=== PATIENT | female | born 1955 | race Caucasian/White ===

== ENCOUNTER 2023-05-04 15:05 | Outpatient (AMB) | payer MEDICARE, SELFPAY ==
[2023-05-04 15:14] VITALS: BP 104/60; PULSE 83; O2SAT 95; BMI 45.0
--- NOTE | 2023-05-04 15:14 | A.OFFVIS_ITS ---
Intake Vital Signs 05/04/23 15:14 Height 5 ft 1 in Weight 238 lb BMI 45.0 BP 104/60 Blood Pressure Location Rt brachial Position Sitting Pulse 83 Pulse Source Pulse Oximeter Pulse Oximetry (%) 95 Oxygen Delivery Method Room Air Intake Visit Reasons: 01/14/23 LETTER [id number]-[id number] LOSS/EMG-LVM Intake Note: Pt presents as a NPV. Pt states her Hands go numb, and tingling and its constant. especially on the left side. Warp Picker Required: No Allergies Sulfa (Sulfonamide Antibiotics) Allergy (Unknown, Verified 05/04/23 15:19) Unknown sulfamethoxazole [From Bactrim] Allergy (Unknown, Verified 05/04/23 15:19) Unknown trimethoprim [From Bactrim] Allergy (Unknown, Verified 05/04/23 15:19) Unknown penicillin Allergy (Severe, Uncoded 05/04/23 15:19) Swelling Medication List - Last Reconciled 05/04/23 by YUE Costa acetaminophen (Tylenol Extra Strength) 500 mg PO Q6H PRN albuterol sulfate 90 mcg/actuation (Ventolin HFA) 2 puffs inhalation Q4H PRN amitriptyline 25 mg PO BEDTIME amlodipine 10 mg PO DAILY atorvastatin 40 mg PO DAILY benzonatate 200 mg PO TID PRN clopidogrel 75 mg PO DAILY cyanocobalamin (vitamin B-12) ER (Vitamin B-12 ER) 0 mcg PO DAILY cyclobenzaprine 10 mg PO TID PRN docusate sodium 100 mg PO BID furosemide 20 mg PO DAILY glipizide 10 mg PO BID insulin glargine (Lantus Solostar U-100 Insulin) units subcut lancets (OneTouch Delica Plus Lancet) As directed levothyroxine 88 mcg PO DAILY lisinopril 10 mg PO DAILY menthol 1 appl topical TID-QID PRN metoprolol tartrate 150 mg PO BID nitroglycerin 0 mg sublingual oxycodone 5 mg PO TID PRN oxycodone ER (OxyContin) 60 mg PO BID sucralfate 10 mL PO TID PRN HPI HPI Comments History of Present Illness Details Right-handed 68-yr-old female presents for neurological evaluation of: Left hand paresthesias. Pt reports worsening left hand painful numbness and tingling from the carpal tunnel region radiating through 2nd-5th fingers and through the thenar region. This started about a year ago w/o preceding infection/injury. More recently this has started in the right hand as well- but not as severe. This occurs mostly at night and upon awakening, and even during the day. She finds that she needs to move her left hand frequently to reduce the numbness. She has noticed some LUE weakness- for instance recently dropped something out of her hands. She has tried a leftwrist splint qhs- but it does not help much. She is on amitriptyline, oxycodone and oxycontin for chronic pain and fibromyalgia- but this does not help the hand pain. Her last HgA1C was approx 7%- prior was 8%- slowly decreased through diet changes. Pt states her b-12 folate, and thyroid studies have been WNL. 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 Denies any specific repetitive task. Patient endorses: Leg cramps. Right hand 4th finger trigger finger surgery. Left 1st finger trigger finger s/s- resolved w/ cortiosne inj a few yrs ago. And patient denies: Color changes in her hands. Swelling in her hands. Usual neck pain- although her neck can be tight. BLE numbness or paresthesias. [facility] Surgical History History of section Hx of cholecystectomy Hx of tonsillectomy Hx of tubal ligation Family History Father Myocardial infarction Mother Myocardial infarction Brother Cancer of kidney Brother Cancer of kidney Brother Lung cancer Sister Cerebrovascular accident (CVA) Social History (Updated 05/04/23 @ 15:29 by Sosa Guevara CMA) Alcohol intake: never Patient Tobacco Use Status: Former Tobacco user Review of Systems Const Details: See scanned ROS form Physical Exam Vital Signs: Last Vital Signs Pulse 83 05/04/23 15:14 BP 104/60 05/04/23 15:14 Pulse Ox 95 05/04/23 15:14 Oxygen Delivery Method Room Air 05/04/23 15:14 BMI result Body Mass Index 45.0 Const General: cooperative and no acute distress Orientation/consciousness: patient oriented x3 HEENT Head: Yes normocephalic Resp Effort & Inspection: normal respiratory effort and able to speak in complete sentences Back/Spine/Pelvis Other: Bilateral posterior cervical tightness. Cervical ROM: mildly decreased Left Spurling: elicits non-radiating base of neck tenderness/tightness Right Spurling: normal. Neuro Other: BUE- positive medial compression test, more son on left MS 5/5- although left hand grasp slightly weaker than right BUE hand CMS 2+. Left distal posterior forearm swelling, slightly tender to touch, mild redness, no warmth BUE can test- negative DTRs 2+ throughtout, however test of left brachial reflex elicits shooting pain up/down arm. General: patient oriented x3, CN's II-XI intact bilaterally and deep tendon reflexes 2+ bilaterally Gait exam (Neuro): Normal gait present Motor exam (neuro): 5/5 motor strength present throughout Psych Appearance: grossly normal Mental Status: mental status grossly normal Speech and movement: Normal speech and movement present Affect: normal affect Attitude: cooperative Thought process: Normal thought process present Thought content: Normal thought content present Assessment & Plan Assessment & Plan (1) Paresthesia of hand, bilateral: Code(s): R20.2 - Paresthesia of skin (2) Bilateral hand numbness: Code(s): R20.0 - Anesthesia of skin (3) Left wrist pain: Code(s): M25.532 - Pain in left wrist Plan Pt advised to undergo BUE EMG/NCS. Pt advised to have left wrist XR. Continue Amitriptyline 25mg qhs. Discussed trying increased dose of Amitriptyline, however pt declines at this time. Continue left wrist splint qhs, may try adding a left elbow splint qhs. Continue using supportive neck pillow at night. f/u in 3 months or sooner prn. Orders: Orders NE electromyogram (EMG) Today R20.0 - Anesthesia of skin, R20.2 - Paresthesia of skin XR wrist LT min 3V Today M25.532 - Pain in left wrist, R20.0 - Anesthesia of skin, R20.2 - Paresthesia of skin Coding Level of Care Code New Pt Level 4 (19848) Diagnoses Paresthesia of hand, bilateral R20.2 Bilateral hand numbness R20.0 Left wrist pain M25.532
== END 2023-05-04 16:29 | disposition home or self-care (01) ==
PROVIDERS: Visit Provider Nurse Practitioner Family
DX: R20.2 Paresthesia of skin (principal); R20.0 Anesthesia of skin; M25.532 Pain in left wrist
CPT/HCPCS: 99204

== ENCOUNTER → 2023-05-04 15:05 | Outpatient (BNVA) | payer MEDICARE, SELFPAY | PROVIDERS: Visit Provider Nurse Practitioner Family | DX: M25.532 Pain in left wrist (principal); R20.2 Paresthesia of skin; R20.0 Anesthesia of skin | CPT/HCPCS: 99202 ==

== ENCOUNTER 2023-05-09 15:03 | Outpatient (REF) | payer OTHER, SELFPAY ==
--- NOTE | ~2023-05-09 | XR_ITS ---
EXAMINATION: XR WRIST, LEFT CLINICAL INFORMATION: Anesthesia of skin COMPARISON: None available. TECHNIQUE: PA, lateral, and oblique views of the left wrist. FINDINGS: Bone alignment is normal. No fracture or dislocation. There is mild arthritis at the first GROUP HOME joint with joint space narrowing. Joint spaces are otherwise normal. Soft tissues are normal. XR/XR wrist LT min 3V IMPRESSION: Degenerative changes of the first GROUP HOME joint.
== END 2023-05-09 15:04 | disposition home or self-care (01) ==
LOC: HO.XRAY 15:03
PROVIDERS: PCP Internal Medicine; Visit Provider Nurse Practitioner Family
DX: M25.532 Pain in left wrist (principal); R20.0 Anesthesia of skin; R20.2 Paresthesia of skin
CPT/HCPCS: 73110

== ENCOUNTER 2023-07-06 13:50 | Outpatient (REF) | payer OTHER, SELFPAY ==
--- NOTE | 2023-07-06 13:54 | EMG_ITS ---
Chief complaint: Left worse than right hand numbness Reason for referral: Evaluate for Carpal Tunnel Syndrome Referred by: Vee Newberry NP Procedure done: Bilateral upper extremities NCS/EMG Precautions and/or limitations: None The limb temperature was monitored continuously and remained between 32-36 degrees C during the performance of the NCS. Nerve Conduction Studies Anti Sensory Summary Table ?Stim Site NR Onset (ms) Norm Onset (ms) Peak (ms) Norm Peak (ms) O-P Amp (?V) Norm O-P Amp Site1 Site2 Delta-0 (ms) Dist (cm) Yang (m/s) Norm Yang (m/s) Left Median Anti Sensory (2nd Digit) Wrist NR <3.6 >10 Wrist 2nd Digit 14.0 Right Median Anti Sensory (2nd Digit) Wrist NR <3.6 >10 Wrist 2nd Digit 14.0 Right Radial Anti Sensory (Thumb) Forearm ? 1.7 2.1 <3.1 26.4 Forearm Thumb 1.7 0.0 Left Ulnar Anti Sensory (5th Digit) Wrist ? 2.1 2.9 <3.7 29.1 >15.0 Wrist 5th Digit 2.1 14.0 67 Right Ulnar Anti Sensory (5th Digit) Wrist ? 2.8 3.3 <3.7 32.2 >15.0 Wrist 5th Digit 2.8 14.0 50 Motor Summary Table ?Stim Site NR Onset (ms) Norm Onset (ms) O-P Amp (mV) Norm O-P Amp iAmp (mV) Amp (1st) (%) Site1 Site2 Delta-0 (ms) Dist (cm) Yang (m/s) Norm Yang (m/s) Left Median Motor (Abd Poll Brev) Wrist ? 8.8 <3.9 4.8 >4.5 5.6 100.0 Elbow Wrist 1.0 19.0 190 >45 Elbow ? 9.8 4.2 4.9 87.5 Right Median Motor (Abd Poll Brev) Wrist ? 8.9 <3.9 1.6 >4.5 1.8 100.0 Elbow Wrist 3.5 21.0 60 >45 Elbow ? 12.4 1.1 1.3 68.8 Left Ulnar Motor (Abd Dig Minimi) Wrist ? 2.6 <3.0 5.3 >5 6.1 100.0 B Elbow Wrist 3.2 17.0 53 >45 B Elbow ? 5.8 6.0 7.1 113.2 A Elbow B Elbow 1.4 10.0 71 >45 A Elbow ? 7.2 6.0 7.3 113.2 Right Ulnar Motor (Abd Dig Minimi) Wrist ? 2.7 <3.0 6.3 >5 7.7 100.0 B Elbow Wrist 3.3 16.5 50 >45 B Elbow ? 6.0 6.4 7.6 101.6 A Elbow B Elbow 1.7 10.0 59 >45 A Elbow ? 7.7 6.3 7.5 100.0 EMG ?Side Muscle Nerve Root Ins Act Fibs Psw Amp Dur Poly Recrt Int Pat Comment Right 1stDorInt Ulnar C8-T1 Nml Nml Nml Nml Nml 0 Nml Complete Right FlexCarRad Median C6-7 Nml Nml Nml Nml Nml 0 Nml Complete Right Biceps Musculocut C5-6 Nml Nml Nml Nml Nml 0 Nml Complete Right Triceps Radial C6-7-8 Nml Nml Nml Nml Nml 0 Nml Complete Right Deltoid Axillary C5-6 Nml Nml Nml Nml Nml 0 Nml Complete Left 1stDorInt Ulnar C8-T1 Nml Nml Nml Nml Nml 0 Nml Complete Left FlexCarRad Median C6-7 Nml Nml Nml Nml Nml 0 Nml Complete Left Biceps Musculocut C5-6 Nml Nml Nml Nml Nml 0 Nml Complete Left Triceps Radial C6-7-8 Nml Nml Nml Nml Nml 0 Nml Complete Left Deltoid Axillary C5-6 Nml Nml Nml Nml Nml 0 Nml Complete FINDINGS: Right median motor nerve showed prolonged distal latency, small amplitude and normal conduction velocity. Left median motor nerve showed prolonged distal latency, normal amplitude but some dispersion proximally and normal conduction velocity. Bilateral median sensory nerves showed absent response. All other nerves tested were within normal. Concentric needle EMG was performed in selected muscles of the bilateral upper extremities. Study did not reveal signs of electric abnormalities as shown in the table below. IMPRESSION: 1. This is an abnormal study. 2. There is electrodiagnostic evidence for bilateral moderate-severe median neuropathy at the wrist, consistent with carpal tunnel syndrome. 3. There is no electrodiagnostic evidence for ulnar neuropathy, brachial plexopathy, or cervical radiculopathy. Thank you for your kind referral. Tamara Concepcion MD, ZEYAD Board Certified, [place] Board of [employer] Medicine and Rehabilitation (ABPMR) Board Certified, [place] Board of Electrodiagnostic Medicine (ABEM) CODIN insert [id number] MTDD
== END 2023-07-06 13:51 | disposition home or self-care (01) ==
LOC: HO.NEURO 13:50
PROVIDERS: PCP Internal Medicine; Visit Provider Nurse Practitioner Family
DX: R20.0 Anesthesia of skin (principal); R20.2 Paresthesia of skin
CPT/HCPCS: 95886; 95911

== ENCOUNTER → 2023-07-06 13:54 | Outpatient (BNV) | payer OTHER, SELFPAY | PROVIDERS: PCP Internal Medicine; Visit Provider Physical Medicine & Rehabilitation | DX: G56.13 Other lesions of median nerve, bilateral upper limbs (principal); G56.03 Carpal tunnel syndrome, bilateral upper limbs | CPT/HCPCS: 95886; 95911 ==

== ENCOUNTER 2023-08-05 11:21 | Outpatient (AMB) | payer MEDICARE, SELFPAY ==
--- NOTE | 2023-08-05 11:26 | MHC.OFFVIS ---
Intake Vital Signs 08/05/23 11:32 Height 5 ft 1 in Weight 233 lb BMI 44.0 BP 142/70 H Blood Pressure Location Rt brachial Position Sitting Intake Visit Reasons: 3 mo F/u for Memory/Confirmed Intake Note: Patient presents for 3 month follow up. Patient states I've been having nerve pain and issues. Allergies Sulfa (Sulfonamide Antibiotics) Allergy (Unknown, Verified 08/05/23 11:36) Unknown sulfamethoxazole [From Bactrim] Allergy (Unknown, Verified 08/05/23 11:36) Unknown trimethoprim [From Bactrim] Allergy (Unknown, Verified 08/05/23 11:36) Unknown penicillin Allergy (Severe, Uncoded 08/05/23 11:36) Swelling Medication List - Last Reconciled 08/05/23 by YUE Costa acetaminophen (Tylenol Extra Strength) 500 mg PO Q6H PRN albuterol sulfate 90 mcg/actuation (Ventolin HFA) 2 puffs inhalation Q4H PRN amitriptyline 25 mg PO BEDTIME amlodipine 10 mg PO DAILY atorvastatin 40 mg PO DAILY benzonatate 200 mg PO TID PRN clopidogrel 75 mg PO DAILY cyanocobalamin (vitamin B-12) ER (Vitamin B-12 ER) 0 mcg PO DAILY cyclobenzaprine 10 mg PO TID PRN docusate sodium 100 mg PO BID furosemide 20 mg PO DAILY gabapentin 100 - 300 mg (1 - 3 x 100 mg) PO BEDTIME 30 days glipizide 10 mg PO BID insulin glargine (Lantus Solostar U-100 Insulin) units subcut lancets (OneTouch Delica Plus Lancet) As directed levothyroxine 88 mcg PO DAILY lisinopril 10 mg PO DAILY menthol 1 appl topical TID-QID PRN metoprolol tartrate 150 mg PO BID nitroglycerin 0 mg sublingual oxycodone 5 mg PO TID PRN oxycodone ER (OxyContin) 60 mg PO BID sucralfate 10 mL PO TID PRN HPI HPI Comments History of Present Illness Details 68-yr-old female presents for f/u visit. Pt continues to have BUE, L > R, painful numbness and tingling. Amitriptyline is not very helpful. She is using her wrist splint. Her BUE EMG/NCS results were c/w carpal tunnel syndorme, and we referred her to ortho- appt scheduled in Aug. Initial HPI form 05/04/23: Pt reports worsening left hand painful numbness and tingling from the carpal tunnel region radiating through 2nd-5th fingers and through the thenar region. This started about a year ago w/o preceding infection/injury. More recently this has started in the right hand as well- but not as severe. This occurs mostly at night and upon awakening, and even during the day. She finds that she needs to move her left hand frequently to reduce the numbness. She has noticed some LUE weakness- for instance recently dropped something out of her hands. She has tried a leftwrist splint qhs- but it does not help much. She is on amitriptyline, oxycodone and oxycontin for chronic pain and fibromyalgia- but this does not help the hand pain. Her last HgA1C was approx 7%- prior was 8%- slowly decreased through diet changes. Pt states her b-12 folate, and thyroid studies have been WNL. 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 Denies any specific repetitive task. [facility] Surgical History Hx of tubal ligation Hx of tonsillectomy Hx of cholecystectomy History of section Family History Father Myocardial infarction Mother Myocardial infarction Brother Cancer of kidney Brother Cancer of kidney Brother Lung cancer Sister Cerebrovascular accident (CVA) Social History Alcohol intake: never Patient Tobacco Use Status: Former Tobacco user Review of Systems Const All systems reviewed & are unremarkable except as noted in HPI and below Physical Exam Vital Signs: Last Vital Signs BP 142/70 H 08/05/23 11:32 BMI result Body Mass Index 44.0 Const General: cooperative and no acute distress Orientation/consciousness: patient oriented x3 HEENT Head: Yes normocephalic Resp Effort & Inspection: normal respiratory effort and able to speak in complete sentences Neuro General: patient oriented x3, gait normal and CN's II-XI intact bilaterally Cognition (Neuro): normal cognition Motor exam (neuro): 5/5 motor strength present throughout Psych Appearance: grossly normal Mental Status: mental status grossly normal Speech and movement: Normal speech and movement present Affect: normal affect Attitude: cooperative Thought process: Normal thought process present Thought content: Normal thought content present Insight: Good insight present (Psych) Judgement: Good judgement present (Psych) Assessment & Plan Assessment & Plan (1) Bilateral carpal tunnel syndrome: Code(s): G56.03 - Carpal tunnel syndrome, bilateral upper limbs (2) Left wrist pain: Code(s): M25.532 - Pain in left wrist Plan Reviewed BUE EMG/NCS- bilateral moderate-severe median neuropathy at the wrist, consistent with carpal tunnel syndrom Reviewed left wrist XR- Degenerative changes of the first MCFP joint. Pt has been schedule to have ortho eval. Continue Amitriptyline 25mg qhs. Discussed trying increased dose of Amitriptyline or trying Alpha-Lipoic acid, however pt declines at this time. Continue left wrist splint qhs. Continue using supportive neck pillow at night. f/u in 4 months or sooner prn. Coding Level of Care Code Est Pt Level 4 (13394) Diagnoses Bilateral carpal tunnel syndrome G56.03 Left wrist pain M25.532
[2023-08-05 11:32] VITALS: BP 142/70; BMI 44.0
== END 2023-08-05 12:09 | disposition home or self-care (01) ==
PROVIDERS: PCP Internal Medicine; Visit Provider Nurse Practitioner Family
DX: G56.03 Carpal tunnel syndrome, bilateral upper limbs (principal); M25.532 Pain in left wrist
CPT/HCPCS: 99214

== ENCOUNTER → 2023-08-05 11:21 | Outpatient (BNVA) | payer MEDICARE, SELFPAY | PROVIDERS: PCP Internal Medicine; Visit Provider Nurse Practitioner Family | DX: G56.03 Carpal tunnel syndrome, bilateral upper limbs (principal); M25.532 Pain in left wrist | CPT/HCPCS: 99212 ==